=== PATIENT | female | born 1985 | race Hispanic/Latino ===

== ENCOUNTER 2018-08-30 20:33 | Emergency (ER) | payer SELFPAY ==
[2018-08-30] MEDS ORDERED: MAGNE/ALUM HYDROXD 30 ML UCUP ONE (22:18)
[2018-08-30] MEDS ORDERED: LIDOCAINE VISCOUS 2% SOLN 15 ML UDC ONE (22:19)
[2018-08-30] MEDS ORDERED: ONDANSETRON 4 MG/2 ML VIAL ONE (22:19)
[2018-08-30] MEDS ORDERED: FAMOTIDINE 20 MG/2 ML VIAL IV ONE (22:19)
[2018-08-30] MEDS ORDERED: NA CHLORIDE 0.9% 1,000 ML ONE (22:19)
[2018-08-30] MEDS ORDERED: MORPHINE 4 MG/ML SYR ONE (22:19)
[2018-08-30 22:40] LABS: Absolute Lymphocytes (CBC) 2.8 K/uL (0.7-4.9); Absolute Monocytes 0.6 K/uL (0.1-1.3); Absolute Neutrophil 5.7 K/uL (1.8-8.0); Basophils % 0.4 % (0-1.3); Eosinophils % 0.5 % (0-4.4); Hematocrit 42.4 % (36.0-45.0); Lymphocytes % 30.7 % (15.3-44.8); MPV 8.3 fL (7.6-11.3); Monocytes % 6.3 % (3.3-12.3); RBC Red Blood Cell Count 4.96 M/uL (3.86-4.86)
[2018-08-30 22:48] LABS: ALT/SGPT 20 U/L (12-78); AST/SGOT 15 U/L (15-37); Albumin 3.8 g/dL (3.4-5.0); Alkaline Phosphatase 61 U/L (45-117); BUN Blood Urea Nitrogen 10 mg/dL (7-18); Bicarbonate 27 mmol/L (21-32); Bilirubin Direct 0.2 mg/dL (0-0.2); Bilirubin Total 0.7 mg/dL (0.2-1.0); Glucose Level 90 mg/dL (74-106); Lipase 74 U/L (73-393); Potassium 3.3 mmol/L (3.5-5.1); Protein, Total 7.7 g/dL (6.4-8.2); Sodium Level 143 mmol/L (136-145)
[2018-08-30 23:05] LABS: Urine Blood 2+ (NEG); Urine Glucose NEGATIVE (NEG); Urine Protein 1+ (NEG); Urine Specific Gravity >1.030 (1.005-1.030); Urine pH 5.5 (5.0-7.0)
[2018-08-30 23:05] LABS: Urine Specific Gravity >1.030 (1.005-1.030)
--- NOTE | 2018-08-31 00:53 | ER ---
Nurse's Notes [facility] Name: Zaira Rao Age: 32 yrs Sex: Female : 1985 Arrival Date: 08/30/2018 Time: 20:36 Bed 18 Private MD: Diagnosis: Acute gastritis without bleeding Presentation: 08/30 20:55 Presenting complaint: Patient states: Epigastric pain with vomiting that started ea Thursday the . Pt reports a weight loss of 11lbs since the . Pt reports she is unable to tolerate PO intake. Transition of care: patient was not received from another setting of care. Onset of symptoms. Risk Assessment: Do you want to hurt yourself or someone else? Patient reports no desire to harm self or others. Initial Sepsis Screen: Does the patient meet any 2 criteria? No. Patient's initial sepsis screen is negative. Does the patient have a suspected source of infection? No. Patient's initial sepsis screen is negative. Care prior to arrival: None. 20:55 Method Of Arrival: Ambulatory ea 20:55 Acuity: FITO 3 ea Triage Assessment: 20:59 General: Appears in no apparent distress. Behavior is calm, cooperative, appropriate ea for age. Pain: Complains of pain in epigastric area Pain currently is 10 out of 10 on a pain scale. Neuro: Level of Consciousness is awake, alert, obeys commands, Oriented to person, place, time, situation. Respiratory: Airway is patent Respiratory effort is even, unlabored, Respiratory pattern is regular, symmetrical. GI: Reports epigastric pain, vomiting. 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 - Social history:: Smoking status: Patient/guardian denies using tobacco, Patient/guardian denies using alcohol, street drugs, The patient lives with family. - Ebola Screening: : No symptoms or risks identified at this time. - Family history:: not pertinent. Screenin:36 Abuse screen: Denies threats or abuse. Denies injuries from another. Nutritional rr5 screening: No deficits noted. Tuberculosis screening: No symptoms or risk factors identified. Fall Risk IV access (20 points). Mental Status- Oriented to own ability (0 pts). Total Elliott Fall Scale indicates No Risk (0-24 pts). Assessment: 21:10 General: Appears in no apparent distress. uncomfortable, Behavior is calm, cooperative, rr5 appropriate for age. Pain: Complains of pain in abdomen Pain does not radiate. Pain currently is 10 out of 10 on a pain scale. Quality of pain is described as aching, Pain began gradually, Is intermittent. Neuro: Level of Consciousness is awake, alert, obeys commands, Oriented to person, place, time, situation, Appropriate for age. 21:10 Cardiovascular: Capillary refill < 3 seconds Patient's skin is warm and dry. rr5 Respiratory: Airway is patent Respiratory effort is even, unlabored, Respiratory pattern is regular, symmetrical. GI: Abdomen is round Reports lower abdominal pain, upper abdominal pain, intolerance of fluids, intolerance of food, nausea, vomiting. : No signs and/or symptoms were reported regarding the genitourinary system. EENT: No signs and/or symptoms were reported regarding the EENT system. Derm: Skin is intact, Skin temperature is warm. Musculoskeletal: Capillary refill < 3 seconds, Range of motion: intact in all extremities. 23:00 Reassessment: Patient appears in no apparent distress at this time. Patient is alert, rr5 oriented x 3, equal unlabored respirations, skin warm/dry/pink. Patient states feeling better. Patient states symptoms have improved. 08/31 00:00 Reassessment: Patient appears in no apparent distress at this time. Patient is alert, rr5 oriented x 3, equal unlabored respirations, skin warm/dry/pink. awaiting for CT result. Patient states feeling better. Patient states symptoms have improved. 01:00 Reassessment: Patient appears in no apparent distress at this time. Patient is alert, rr5 oriented x 3, equal unlabored respirations, skin warm/dry/pink. explained by dr. barbosa.discharge instruction given and explained without complaints made. Patient states feeling better. Patient states symptoms have improved. Vital Signs: 08/30 20:54 BP 141 / 93; Pulse 77; Resp 20; Temp 98; Pulse Ox 99% ; Weight 83.91 kg; Height 5 ft. 4 ea in. (162.56 cm); Pain 10/10; 22:00 BP 135 / 70; Pulse 79; Resp 19; Pulse Ox 98% ; rr5 23:00 BP 126 / 80; Pulse 80; Resp 17; Pulse Ox 99% ; rr5 08/31 00:00 BP 122 / 78; Pulse 75; Resp 16; Pulse Ox 99% ; rr5 01:00 BP 127 / 86; Pulse 80; Resp 17; Pulse Ox 99% ; rr5 08/30 20:54 Body Mass Index 31.75 (83.91 kg, 162.56 cm) ea ED Course: 08/30 20:36 Patient arrived in ED. am2 20:58 Triage completed. ea 21:01 Arm band placed on right wrist. Patient placed in an exam room, on a stretcher. ea 21:12 Sandy Landers MD is Attending Physician. ma2 21:32 Remi Horn RN is Primary Nurse. rr5 21:55 Radiology exam delayed due to lab results not completed at this time. (BUN/Creatinine). vm2 22:18 Inserted saline lock: 20 gauge in right antecubital area, using aseptic technique. ea Blood collected. 22:20 Radiology exam delayed due to lab results not completed at this time. (BUN/Creatinine). vm2 22:30 Patient has correct armband on for positive identification. Bed in low position. Call rr5 light in reach. Side rails up X2. Pulse ox on. NIBP on. 23:[address] via wheelchair. kw1 23:41 CT Abd/Pelvis - W/Contrast In Process Unspecified. EDMS 23:41 CT completed. Patient tolerated procedure well. Patient moved back from CT. kw1 08/31 01:09 No provider procedures requiring assistance completed. IV discontinued, intact, rr5 bleeding controlled, No redness/swelling at site. Pressure dressing applied. Administered Medications: 08/30 22:19 Drug: Pepcid 20 mg Route: IVP; Site: right antecubital; ea 08/31 01:00 Follow up: Response: No adverse reaction rr5 08/30 22:22 Drug: NS 0.9% 1000 ml Route: IV; Rate: 1 bolus; Site: right antecubital; ea 23:30 Follow up: Response: No adverse reaction; IV Status: Completed infusion; IV Intake: rr5 1000ml 22:22 Drug: Zofran 4 mg Route: IVP; Site: right antecubital; ea 08/31 01:00 Follow up: Response: No adverse reaction rr5 08/30 22:23 Drug: morphine 4 mg Route: IVP; Site: right antecubital; ea 08/31 01:00 Follow up: Response: No adverse reaction rr5 08/30 23:00 Drug: GI Cocktail without - (Maalox Suspension 30 ml, Lidocaine Liquid 2 % 15 ea ml) Route: PO; 08/31 01:00 Follow up: Response: No adverse reaction rr5 Intake: 08/30 23:30 IV: 1000ml; Total: 1000ml. rr5 Outcome: 08/31 00:52 Discharge ordered by . tw4 01:09 Discharged to home ambulatory, with family. rr5 01:09 Condition: stable 01:09 Discharge instructions given to patient, family, Instructed on discharge instructions, follow up and referral plans. medication usage, Demonstrated understanding of instructions, follow-up care, medications, Prescriptions given X 3. 01:10 Patient left the ED. rr5 Signatures: Dispatcher [employer] EDMS Karen Moncada am2 Gloria Thomas2 Ladonna Alvarado, RN RN Brittany Kolb1 Sandy Landers MD MD ma2 Tacho Barbosa MD MD tw4 Remi Horn, RN RN rr5
--- NOTE | 2018-08-31 00:53 | EDPHYS ---
Physician Documentation [facility] Name: Zaira Rao Age: 32 yrs Sex: Female : 1985 Arrival Date: 08/30/2018 Time: 20:36 Bed 18 Private MD: ED Physician Sandy Landers HPI: 08/30 22:03 This 32 yrs old Female presents to ER via Ambulatory with complaints of ma2 Nausea/Vomiting, Epigastric Pain, Decreased Appetite. 22:03 The patient presents to the emergency department with nausea, abdominal pain. Onset: ma2 The symptoms/episode began/occurred gradually, 1 day(s) ago. Associated signs and symptoms: Pertinent positives: abdominal pain, Pertinent negatives: anorexia, dysuria, flatulence. Severity of symptoms: At their worst the symptoms were severe in the emergency department the symptoms are unchanged. The patient has experienced similar episodes in the past. 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 - Social history:: Smoking status: Patient/guardian denies using tobacco, Patient/guardian denies using alcohol, street drugs, The patient lives with family. - Ebola Screening: : No symptoms or risks identified at this time. - Family history:: not pertinent. ROS: 22:03 Constitutional: Negative for fever, chills, and weight loss, Cardiovascular: Negative ma2 for chest pain, palpitations, and edema, Respiratory: Negative for shortness of breath, cough, wheezing, and pleuritic chest pain. 22:03 Abdomen/GI: Positive for abdominal pain, Negative for diarrhea, abdominal distension, rectal bleeding, flatulence. 22:03 All other systems are negative. Exam: 22:03 Constitutional: This is a well developed, well nourished patient who is awake, alert, ma2 and in no acute distress. Chest/axilla: Normal chest wall appearance and motion. Nontender with no deformity. No lesions are appreciated. Cardiovascular: Regular rate and rhythm with a normal S1 and S2. No gallops, murmurs, or rubs. Normal PMI, no JVD. No pulse deficits. Respiratory: Lungs have equal breath sounds bilaterally, clear to auscultation and percussion. No rales, rhonchi or wheezes noted. No increased work of breathing, no retractions or nasal flaring. Abdomen/GI: Soft, non-tender, with normal bowel sounds. No distension or tympany. No guarding or rebound. No evidence of tenderness throughout. MS/ Extremity: Pulses equal, no cyanosis. Neurovascular intact. Full, normal range of motion. Neuro: Awake and alert, GCS 15, oriented to person, place, time, and situation. Cranial nerves II-XII grossly intact. Motor strength 5/5 in all extremities. Sensory grossly intact. Cerebellar exam normal. Normal gait. Vital Signs: 20:54 BP 141 / 93; Pulse 77; Resp 20; Temp 98; Pulse Ox 99% ; Weight 83.91 kg; Height 5 ft. 4 ea in. (162.56 cm); Pain 10/10; 22:00 BP 135 / 70; Pulse 79; Resp 19; Pulse Ox 98% ; rr5 23:00 BP 126 / 80; Pulse 80; Resp 17; Pulse Ox 99% ; rr5 08/31 00:00 BP 122 / 78; Pulse 75; Resp 16; Pulse Ox 99% ; rr5 01:00 BP 127 / 86; Pulse 80; Resp 17; Pulse Ox 99% ; rr5 08/30 20:54 Body Mass Index 31.75 (83.91 kg, 162.56 cm) ea MDM: 08/30 21:12 Patient medically screened. ma2 22:03 Differential diagnosis: Nonspecific abd pain, gastritis, cholecystitis, pancreatitis, ma2 viral gastroenteritis, gastroenteritis. 08/31 00:51 Data reviewed: vital signs, nurses notes. Data interpreted: Pulse oximetry: tw4 Interpretation: normal. Counseling: I had a detailed discussion with the patient and/or guardian regarding: the historical points, exam findings, and any diagnostic results supporting the discharge/admit diagnosis. Special discussion: Based on the patient's Hx, exam, and Dx evaluation, there is no indication for emergent surgery or inpatient Tx. It is understood by the patient/guardian that if the Sx's persist or worsen they need to return immediately for re-evaluation. I discussed with the patient/guardian in detail that at this point there is no indication for admission to the hospital. It is understood, however, that if the symptoms persist or worsen the patient needs to return immediately for re-evaluation. 08/30 21:52 Order name: Basic Metabolic Panel; Complete Time: 00:48 me08/31 00:48 Interpretation: Normal except: K 3.3; CL 108. 08/30 21:52 Order name: CBC with Diff; Complete Time: 22:44 me08/31 00:49 Interpretation: Normal except: RBC 4.96. 08/30 21:52 Order name: Creatinine for Radiology; Complete Time: 22:46 me08/30 21:52 Order name: Hepatic Function; Complete Time: 00:48 me08/31 00:48 Interpretation: Normal except: GLOB 3.9; A/G 1.0. 08/30 21:52 Order name: Lipase; Complete Time: 00:48 [facility] 08/31 00:48 Interpretation: Within normal limits: LIP 74. 08/30 22:15 Order name: Urine Dipstick--Ancillary (enter results); Complete Time: 00:48 [facility] 08/31 00:48 Interpretation: Normal except: USPGR >1.030; UKET 2+; UBLD 2+; UPROT 1+. 08/30 21:52 Order name: IV Saline Lock; Complete Time: 22:19 me08/30 21:52 Order name: CT Abd/Pelvis - W/Contrast [facility] 08/30 22:17 Order name: Urine --Ancillary (enter results); Complete Time: 00:48 [facility] 08/31 00:48 Interpretation: Normal except: USPGR >1.030. 08/30 21:52 Order name: Labs collected and sent; Complete Time: 22:19 [facility] 08/30 21:52 Order name: Urine Dipstick-Ancillary (obtain specimen); Complete Time: 00:00 [facility] Administered Medications: 08/30 22:19 Drug: Pepcid 20 mg Route: IVP; Site: right antecubital; ea 08/31 01:00 Follow up: Response: No adverse reaction rr5 08/30 22:22 Drug: NS 0.9% 1000 ml Route: IV; Rate: 1 bolus; Site: right antecubital; ea 23:30 Follow up: Response: No adverse reaction; IV Status: Completed infusion; IV Intake: rr5 1000ml 22:22 Drug: Zofran 4 mg Route: IVP; Site: right antecubital; ea 08/31 01:00 Follow up: Response: No adverse reaction rr5 08/30 22:23 Drug: morphine 4 mg Route: IVP; Site: right antecubital; ea 08/31 01:00 Follow up: Response: No adverse reaction rr5 08/30 23:00 Drug: GI Cocktail without - (Maalox Suspension 30 ml, Lidocaine Liquid 2 % 15 ea ml) Route: PO; 08/31 01:00 Follow up: Response: No adverse reaction rr5 Disposition: 08/31/18 00:52 Discharged to Home. Impression: Acute gastritis without bleeding. - Condition is Stable. - Discharge Instructions: Abdominal Pain, Adult, Gastritis, Adult. - Prescriptions for Tylenol- Codeine #3 300-30 mg Oral Tablet - take 2 tablet by ORAL route every 6 hours As needed; 30 tablet. Zofran 4 mg Oral Tablet - take 1 tablet by ORAL route every 12 hours As needed; 6 tablet. Pepcid 20 mg Oral Tablet - take 1 tablet by ORAL route once daily for 10 days; 10 tablet. - Medication Reconciliation Form, Thank You Letter, Antibiotic Education, Prescription Opioid Use form. - Follow up: Private Physician; When: Upon discharge from the Emergency Department; Reason: Recheck today's complaints, Continuance of care, Re-evaluation by your physician. - Problem is new. - Symptoms have improved. Signatures: Dispatcher [employer] EDUT Ladonna Alvarado, RN Sandy Perkins ea, MD MD ma2 Tacho Pulido MD MD tw4 Remi Horn RN RN rr5 Corrections: (The following items were deleted from the chart) 01:10 00:52 08/31/2018 00:52 Discharged to Home. Impression: Acute gastritis without rr5 bleeding. Condition is Stable. Discharge Instructions: Abdominal Pain, Adult. Prescriptions for Tylenol-Codeine #3 300-30 mg Oral Tablet - take 2 tablet by ORAL route every 6 hours As needed; 30 tablet, Zofran 4 mg Oral Tablet - take 1 tablet by ORAL route every 12 hours As needed; 6 tablet, Pepcid 20 mg Oral Tablet - take 1 tablet by ORAL route once daily for 10 days; 10 tablet. and Forms are Medication Reconciliation Form, Thank You Letter, Antibiotic Education, Prescription Opioid Use. Follow up: Private Physician; When: Upon discharge from the Emergency Department; Reason: Recheck today's complaints, Continuance of care, Re-evaluation by your physician. Problem is new. Symptoms have improved. tw4
--- NOTE | 2018-08-31 10:20 | RAD REPORT ---
EXAM DESCRIPTION: CT - Abdomen Pelvis W Contrast - 08/31/2018 1:49 am CLINICAL HISTORY: Epigastric pain with vomiting. COMPARISON: None. TECHNIQUE: CT scan of the abdomen and pelvis with IV contrast. This exam was performed according to our departmental dose-optimization program, which includes automated exposure control, adjustment of the mA and/or kV according to patient size and/or use of iterative reconstruction technique. FINDINGS: The lung bases are clear. No pleural or pericardial effusions. There is no hiatal hernia. The liver, spleen, pancreas, gallbladder, adrenal glands, and kidneys are unremarkable. No urinary st ones are seen. The pelvic organs are also unremarkable. There has been a prior appendectomy. No small bowel obstruction. No evidence of acute diverticulitis. No intraperitoneal free fluid or free air is seen. The aorta is normal caliber. No acute osseous findings are appreciated. There is no body wall hernia. IMPRESSION: No acute abdominal or pelvic pathology. 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 The interpreting radiologist is f ully responsible for the content of the report.
== END 2018-08-31 01:10 | disposition home or self-care (01) ==
LOC: ER 20:33
DX: K29.00 Acute gastritis without bleeding (principal); Z85.89 Personal history of malignant neoplasm of other organs and systems
CPT/HCPCS: 36415; 74177; 80048; 80076; 81003; 81025; 83690; 85025; 96361; 96374; 96375; 99284; J2405; J7030; Q9967

== ENCOUNTER 2021-01-28 00:15 | Emergency (ER) | payer SELFPAY ==
--- OUTSIDE RECORDS SUMMARY | 2021-01-28 00:19 | XMS REPORT | Continuity of Care Document ---
:1985 Author Organization [facility] t Address [address] [place] [address] [place] [id number] Care Team Providers Name Role Phone Unavailable Unavailable Unavailable Problems This patient has no known problems. Allergies, Adverse Reactions, Alerts This patient has no known allergies or adverse reactions. Medications This patient has no known medications. Procedures This patient has no known procedures. Encounters Start End Encounter Admission Attending Care Care Encounter Source Date/Time Date/Time Type Type Clinicians Facility Department ID 2019-04-02 2019-04-02 Emergency E [id number] 18:28:00 18:28:00 Results This patient has no known results.
[2021-01-28 03:30] LABS: Urine Blood Negative (Negative); Urine Glucose Negative (Negative); Urine Protein Negative (Negative); Urine Specific Gravity 1.025 (1.005-1.030)
[2021-01-28 03:37] LABS: Absolute Lymphocytes (CBC) 2.9 K/uL (0.7-4.9); Basophils % 0.1 % (0-1.3); Hematocrit 36.9 % (36.0-45.0); Lymphocytes % 38.7 % (15.3-44.8); MPV 9.2 fL (7.6-11.3); RBC Red Blood Cell Count 4.62 M/uL (3.86-4.86)
[2021-01-28 03:38] LABS: Albumin 3.8 g/dL (3.4-5.0); Bilirubin Direct 0.1 mg/dL (0-0.2); Bilirubin Total 0.3 mg/dL (0.2-1.0); Potassium 3.7 mmol/L (3.5-5.1); Protein, Total 7.6 g/dL (6.4-8.2)
[2021-01-28 03:42] LABS: Urine Specific Gravity/Preg 1.025 (1.005-1.030)
--- NOTE | 2021-01-28 10:47 | RAD REPORT ---
EXAM DESCRIPTION: CT Abdomen and Pelvis COMPARISON: CT abdomen pelvis August 31, 2018 CLINICAL HISTORY: [facility] MAIN Abd pain;Abdominal distention TECHNIQUE: CT of the abdomen and pelvis was acquired with IV contrast material. Coronal and sagitt al reconstructions were obtained. Automated exposure control was utilized on this examination as a dose lowering technique. FINDINGS: Lung bases: Clear. Liver: Small perfusion anomaly of the inferior right liver. Gallbladder and biliary: Normal gallbladder. Unremarkable biliary tree. Pancreas: Normal. Spleen: Normal. Adrenal glands: Normal adrenal glands. Kidneys: 3 mm nonobstructing left renal calculus. Stomach and Small Bowel: The stomach and small bowel are normal. Urinary bladder: Normal. Uterus and Adnexa: Normal. Colon and Appendix: The colon is unremarkable. Appendectomy. Retroperitoneum and lymph nodes: Retroperitoneal lymph nodes are increased in number but not in size and are likely reactive. Vascular: Normal. Peritoneal cavity: No ascites or free air. Musculoskeletal and soft tissues: Soft tissues are unremarkable. No aggressive bone lesions. No com pression fracture. IMPRESSION: 1. No acute intra-abdominal abnormality. 2. Small nonobstructing left renal calculus. Electronically signed by: Nilesh Bledsoe MD 01/28/2021 5:03 AM CDT Due to temporary technical issues with the PACS/Fluency reporting system, reports are being signed by the in house radiologist without review as a courtesy to ensure prompt reporting. The interpreting r adiologist is fully responsible for the content of the report.
--- NOTE | 2021-01-29 17:06 | EDPHYS ---
Physician Documentation [facility] Name: Zaira Rao Age: 35 yrs Sex: Female : 1985 Arrival Date: 01/28/2021 Time: 00:21 Bed 4 Private MD: ED Physician Tito Sloan HPI: 01/28 01:50 This 35 yrs old Female presents to ER via Ambulatory with complaints of mh7 Abdominal Pain. 01:50 The patient presents with abdominal pain that is diffuse, abdominal distention that is mh7 diffuse. 01:50 Onset: The symptoms/episode began/occurred 2 day(s) ago, Bloating and distention and mh7 intermittent for 6 to 7 months.. The symptoms radiate to both flanks. 01:50 Associated signs and symptoms: Pertinent negatives: nausea, vomiting, and diarrhea, mh7 anorexia, blood in stools, chest pain, constipation, diarrhea, dysuria, fever, headache, hematuria, nausea, palpitations, shortness of breath, vaginal discharge, vomiting, vomiting blood. 01:50 The symptoms are described as intermittent, vague, waxing/waning. Modifying factors: mh7 The symptoms are alleviated by nothing, the symptoms are aggravated by food. Severity of pain: At its worst the pain was moderate yesterday, in the emergency department the pain is unchanged. 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 - Social history:: Smoking status: Patient denies any tobacco usage or history of. ROS: 01:50 Constitutional: Negative for fever, chills, and weight loss, Eyes: Negative for injury, mh7 pain, redness, and discharge, ENT: Negative for injury, pain, and discharge, Neck: Negative for injury, pain, and swelling, Cardiovascular: Negative for chest pain, palpitations, and edema, Respiratory: Negative for shortness of breath, cough, wheezing, and pleuritic chest pain, Back: Negative for injury and pain, : Negative for injury, bleeding, discharge, and swelling, MS/Extremity: Negative for injury and deformity, Skin: Negative for injury, rash, and discoloration, Neuro: Negative for headache, weakness, numbness, tingling, and seizure, Psych: Negative for depression, anxiety, suicide ideation, homicidal ideation, and hallucinations, Allergy/Immunology: Negative for hives, rash, and allergies, Endocrine: Negative for neck swelling, polydipsia, polyuria, polyphagia, and marked weight changes, Hematologic/Lymphatic: Negative for swollen nodes, abnormal bleeding, and unusual bruising. Exam: 01:50 Constitutional: This is a well developed, well nourished patient who is awake, alert, mh7 and in no acute distress. Head/Face: Normocephalic, atraumatic. Eyes: Pupils equal round and reactive to light, extra-ocular motions intact. Lids and lashes normal. Conjunctiva and sclera are non-icteric and not injected. Cornea within normal limits. Periorbital areas with no swelling, redness, or edema. Neck: Trachea midline, no thyromegaly or masses palpated, and no cervical lymphadenopathy. Supple, full range of motion without nuchal rigidity, or vertebral point tenderness. No Meningismus. Chest/axilla: Normal chest wall appearance and motion. Nontender with no deformity. No lesions are appreciated. Cardiovascular: Regular rate and rhythm with a normal S1 and S2. No gallops, murmurs, or rubs. Normal PMI, no JVD. No pulse deficits. Respiratory: Lungs have equal breath sounds bilaterally, clear to auscultation and percussion. No rales, rhonchi or wheezes noted. No increased work of breathing, no retractions or nasal flaring. Back: No spinal tenderness. No costovertebral tenderness. Full range of motion. Skin: Warm, dry with normal turgor. Normal color with no rashes, no lesions, and no evidence of cellulitis. MS/ Extremity: Pulses equal, no cyanosis. Neurovascular intact. Full, normal range of motion. Neuro: Awake and alert, GCS 15, oriented to person, place, time, and situation. Cranial nerves II-XII grossly intact. Motor strength 5/5 in all extremities. Sensory grossly intact. Cerebellar exam normal. Normal gait. Psych: Awake, alert, with orientation to person, place and time. Behavior, mood, and affect are within normal limits. 01:50 Abdomen/GI: Inspection: obese Bowel sounds: normal, in all quadrants, Palpation: mh7 moderate abdominal tenderness, in all quadrants, mass, is not appreciated, rebound tenderness, is not appreciated, voluntary guarding, is not appreciated, involuntary guarding, is not appreciated, no appreciated organomegaly, Rectal exam: the exam is deferred, because of patient request, Indicators: McBurney's point is not tender, Dubois's sign is negative, Rovsing's sign is negative, Obturator sign is negative, Psoas sign is negative, Liver: no appreciated palpable abnormalities, Hernia: not appreciated. Vital Signs: 01:02 BP 138 / 75; Pulse 74; Resp 18; Temp 98.4; Pulse Ox 98% ; Weight 77.56 kg; Height 5 ft. cg 4 in. (162.56 cm); Pain 4/10; 03:58 BP 132 / 67; Pulse 52; Resp 16; Pulse Ox 100% on R/A; Pain 6/10; lp1 04:50 BP 121 / 64; Pulse 59; Resp 16; Pulse Ox 100% on R/A; lp1 01:02 Body Mass Index 29.35 (77.56 kg, 162.56 cm) cg MDM: 05:15 Differential diagnosis: appendicitis, bowel obstruction, cholecystitis, Cholelithiasis, mh7 diverticulitis, Ectopic , gastritis, gastroesophageal reflux disease, non-specific abd pain, pancreatitis, Pyelonephritis, Ureterolithiasis, urinary tract infection. Data reviewed: vital signs, nurses notes, lab test result(s), amylase and lipase, CBC, electrolytes, urinalysis, radiologic studies, CT scan. Counseling: I had a detailed discussion with the patient and/or guardian regarding: the historical points, exam findings, and any diagnostic results supporting the discharge/admit diagnosis, lab results, radiology results, the need for outpatient follow up, to return to the emergency department if symptoms worsen or persist or if there are any questions or concerns that arise at home. Response to treatment: the patient's symptoms have markedly improved after treatment. 05:[address] [facility] 01/28 01:58 Order name: Basic Metabolic Panel; Complete Time: 03:43 01/28 01:58 Order name: CBC with Diff; Complete Time: 03:43 [facility] 01/28 01:58 Order name: Hepatic Function; Complete Time: 03:43 01/28 01:58 Order name: Lipase; Complete Time: 03:43 [facility] 01/28 03:30 Order name: Urine Dipstick-Ancillary; Complete Time: 03:35 [facility] 01/28 03:30 Order name: Urine --Ancillary (enter results) tt3 01/28 01:58 Order name: IV Saline Lock; Complete Time: 02:33 [facility] 01/28 01:58 Order name: Labs collected and sent; Complete Time: 02:33 [facility] 01/28 01:58 Order name: Urine Dipstick-Ancillary (obtain specimen); Complete Time: 03:30 [facility] 01/28 01:58 Order name: Urine Test (obtain specimen); Complete Time: 03:30 [facility] 01/28 03:31 Order name: Urine --Ancillary; Complete Time: 03:43 [facility] 01/28 03:43 Order name: CT Abd/Pelvis - IV Contrast Only [facility] Administered Medications: No medications were administered Disposition Summary: 01/28/21 05:16 Discharge Ordered Location: Home [facility] Problem: an ongoing problem [facility] Symptoms: have improved [facility] Condition: Stable [facility] Diagnosis - Abdominal pain, Generalized [facility] Followup: [facility] - With: Private Physician - When: 1 - 2 days - Reason: Worsening of condition, Recheck today's complaints, Continuance of care, Re-evaluation by your physician Discharge Instructions: - Discharge Summary Sheet [facility] - Abdominal Pain, Adult, [id number] [facility] Forms: - Medication Reconciliation Form [facility] - Thank You Letter [facility] - Antibiotic Education [facility] - Prescription Opioid Use [facility] Signatures: Dispatcher [employer] Erin Wan RN RN lp1 Mariah Saucedo RN RN Tito Sloan MD MD [facility]
--- NOTE | 2021-01-29 17:06 | ER ---
Nurse's Notes [facility] Name: Zaira Rao Age: 35 yrs Sex: Female : 1985 Arrival Date: 01/28/2021 Time: 00:21 Bed 4 Private MD: Diagnosis: Abdominal pain, Generalized Presentation: 01/28 01:02 Chief complaint: Patient states: C/o of lower abdominal pain. Patient states "its a cg sharp pain and if feels like something is twisting". Did have a bowel movement today with soft stool and is passing gas. States "My stomach is bloated and getting worse the last 2 weeks. Feels nauseated but no vomiting. Coronavirus screen: Client denies travel out of the [place] in the last 14 days. tested positive for covid today. Ebola Screen: Patient denies travel to an Ebola-affected area in the 21 days before illness onset. Onset of symptoms was January 14, 2021. 01:02 Method Of Arrival: Ambulatory 01:02 Acuity: FITO 3 03:59 Initial Sepsis Screen: Does the patient meet any 2 criteria? No. Patient's initial lp1 sepsis screen is negative. Does the patient have a suspected source of infection? No. Patient's initial sepsis screen is negative. Risk Assessment: Do you want to hurt yourself or someone else? Patient reports no desire to harm self or others. Triage Assessment: 01:02 General: Appears. 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 - Social history:: Smoking status: Patient denies any tobacco usage or history of. Screenin:58 Abuse screen: Denies threats or abuse. Denies injuries from another. Nutritional lp1 screening: No deficits noted. Tuberculosis screening: No symptoms or risk factors identified. Fall Risk None identified. Assessment: 02:15 General: Appears in no apparent distress. Behavior is appropriate for age. Pain: lp1 Complains of pain in right low back Pain currently is 5 out of 10 on a pain scale. Quality of pain is described as aching. Neuro: Level of Consciousness is awake, alert, obeys commands, Oriented to person, place, time, situation. Cardiovascular: Patient's skin is warm and dry. Respiratory: Respiratory effort is even, unlabored. GI: Abdomen is round Bowel sounds present X 4 quads. Abd is soft and non tender X 4 quads. Reports bloating. : Denies burning with urination. EENT: No signs and/or symptoms were reported regarding the EENT system. Derm: Skin is pink, warm \\T\\ dry. Musculoskeletal: No deficits noted. 03:58 Reassessment: Patient denies need for pain medication at this time; Rates pain 6/10 on lp1 pain scale, appears comfortable. Vital Signs: 01:02 BP 138 / 75; Pulse 74; Resp 18; Temp 98.4; Pulse Ox 98% ; Weight 77.56 kg; Height 5 ft. cg 4 in. (162.56 cm); Pain 4/10; 03:58 BP 132 / 67; Pulse 52; Resp 16; Pulse Ox 100% on R/A; Pain 6/10; lp1 04:50 BP 121 / 64; Pulse 59; Resp 16; Pulse Ox 100% on R/A; lp1 01:02 Body Mass Index 29.35 (77.56 kg, 162.56 cm) cg ED Course: 00:21 Patient arrived in ED. bp1 01:10 Triage completed. cg 01:39 Tito Sloan MD is Attending Physician. 7 02:32 Initial lab(s) drawn, by pr, sent to lab. Inserted saline lock: 20 gauge in right tt3 antecubital area, using aseptic technique. Blood collected. 03:54 Erin Batista, RN is Primary Nurse. lp1 03:59 Arm band placed on. lp1 03:59 Patient has correct armband on for positive identification. lp1 04:39 CT Abd/Pelvis - IV Contrast Only In Process Unspecified. EDMS 05:25 No provider procedures requiring assistance completed. IV discontinued, No lp1 redness/swelling at site. Pressure dressing applied. Administered Medications: No medications were administered Outcome: 05:16 Discharge ordered by . 7 05:25 Discharged to home ambulatory. lp1 05:25 Condition: good 05:25 Condition: good 05:25 Discharge instructions given to patient, Instructed on discharge instructions, follow up and referral plans. Demonstrated understanding of instructions, follow-up care. 05:25 Patient left the ED. lp1 Signatures: Dispatcher [employer] EDMS Erin Batista RN RN lp1 Mariah Saucedo RN RN cg Paniauga, Brittany bp1 Holmes, Maurice, MD MD 7 Jameel Rouse tt3
[2021-01-30 03:49] VITALS: TEMP 98.4
[2021-01-30 03:51] VITALS: O2SAT 100
[2021-01-30 04:06] VITALS: BP 121/64
== END 2021-01-28 05:25 | disposition home or self-care (01) ==
LOC: ER 00:15
DX: R10.84 Generalized abdominal pain (principal)
CPT/HCPCS: 36415; 74177; 80048; 80076; 81003; 81025; 83690; 85025; Q9967